=== PATIENT | female | born 1985 | race Caucasian/White ===

== ENCOUNTER 2024-09-03 03:09 | Outpatient (CLI) | payer OTHER, SELFPAY | END 2024-09-03 03:10 | disposition home or self-care (01) | LOC: AMB 09-04 15:02 | PROVIDERS: Visit Provider Family Medicine | DX: R56.9 Unspecified convulsions (principal) | CPT/HCPCS: A0998 ==

== ENCOUNTER 2024-09-03 04:28 | Inpatient (IN) | payer OTHER, SELFPAY ==
[2024-09-03] VITALS (29 sets, daily range): BP systolic 118–177; BP diastolic 78–128; PULSE 91–137; RESP 14–22; TEMP 35.8–36.4; O2SAT 94–99; BMI 34.2
--- NOTE | 2024-09-03 05:01 | CRLHL7_ITS ---
For Patients: As a result of the Century Cures Act, medical imaging exams and procedure reports are released immediately into your electronic medical record. You may view this report before your referring provider. If you have questions, please contact your health care provider. INDICATION: First seizure. COMPARISON: None. TECHNIQUE: CT of the brain / head without intravenous contrast. Multiplanar axial, coronal, and sagittal reformats were reconstructed. FINDINGS: No intracranial hemorrhage. Normal appearance of the white matter. No acute or subacute cortically based infarct. No mass or mass effect. Normal ventricles. No skull fractures. No worrisome focal bone lesion. IMPRESSION: Normal head CT. Please note that all CT scans at this facility use dose modulation, iterative reconstruction, and/or weight-based dosing when appropriate to reduce radiation dose to as low as reasonably achievable. Dictated by Farideh Becerra MD @ 09/03/2024 5:35:06 AM (Electronically Signed)
--- NOTE | 2024-09-03 05:03 | ED.GENADULT ---
HPI - General Adult General Chief complaint: Seizure Stated complaint: possible seizure Time Seen by Provider: 09/03/24 04:39 Source: patient and family Mode of arrival: ambulatory Limitations: no limitations History of Present Illness HPI narrative: 39-year-old female presents the emergency department for evaluation of seizure episode. This episode was witnessed by her . She states that she was watching TV with her spouse, she felt a little funny and then started staring at a candle and seeing funny lytes, this lasted for probably about 30 seconds and then reports that she started having a shaking episode with her head turned to the side that lasted probably about 3 minutes. She was not arousable. He is very familiar with what a seizure looks like, as his mother has a history of epilepsy. He called 911. She came out of the seizure within probably about 3 minutes. She was drowsy and a little out of it for probably about another 5 minutes and then by the time EMS arrived, she was fully alert and conversational. She does remember EMS coming. She does not believe that she has had similar episodes like this. Does not use any anticoagulants. No recent major head injury. She has bruises across her abdomen, hands she reports that she fell several days ago when she was celebrating her birthday. She admits to drinking more alcohol than usual on that day. On specific questioning, it is clear that she drinks alcohol most days. Reports both beer and a shot most days but is very vague on her quantification both to me and the nurse. No fever. She is not on any type of medications but does admit that she is working with a counselor who does suspect that she has some panic disorder. Denies allergies. No history of treatment for alcohol disorder, denies history of liver dysfunction. Patient has signed off on the ambulance after they medically cleared her but recommended evaluation in the ED. She presents about a 1/2 hour later by private car for evaluation. present, good historian. Does seem insightful to her alcohol usage as well. No similar prior ED visits. Past medical history notable for no chronic medical problems. No allergies, no long-term medicines. No recent surgeries. ROS is notable for the neurological changes and anxiety as stated above, otherwise denies times 12 systems. Related Data Home Medications ?Medication ?Instructions ?Recorded ?Confirmed No Known Home Medications 09/03/24 09/03/24 Allergies Allergy/AdvReac Type Severity Reaction Status Date / Time No Known Drug Allergies Allergy Verified 09/03/24 04:39 [facility] Social History Smoking Status: Never smoker Do you use any of these nicotine containing products: None Second hand tobacco smoke exposure: No How often do you have a drink containing alcohol: 4 or more times a week How many standard drinks containing alcohol do you have on a typical day: 1 or 2 How often do you have six or more drinks on one occasion: Less than monthly AUDIT-C Alcohol total score: 5 Non-prescribed substance use: marijuana (any form) Exam Const: Vital Signs, click to edit/add: Vital Signs - 24 hr 09/03/24 04:36 09/03/24 07:09 09/03/24 07:15 Temperature 97.6 F Pulse Rate 97 95 Pulse Rate [Pulse Oximeter] 137 H Respiratory Rate 20 17 15 Blood Pressure Blood Pressure [Ri ght Upper Arm] 170/128 H Pulse Oximetry 97 98 97 Oxygen Delivery Me thod Room Air 09/03/24 07:22 09/03/24 07:22 09/03/24 07:23 Temperature Pulse Rate 97 97 91 Pulse Rate [Pulse Oximeter] Respiratory Rate 14 14 Blood Pressure 130/81 130/81 Blood Pressure [Ri ght Upper Arm] Pulse Oximetry 99 99 96 Oxygen Delivery Me thod 09/03/24 07:30 09/03/24 07:42 09/03/24 07:45 Temperature Pulse Rate 109 H 98 119 H Pulse Rate [Pulse Oximeter] Respiratory Rate 17 21 21 Blood Pressure 140/85 H Blood Pressure [Ri ght Upper Arm] Pulse Oximetry 99 96 98 Oxygen Delivery Me thod 09/03/24 08:00 09/03/24 08:02 09/03/24 08:15 Temperature Pulse Rate 104 H 102 H 98 Pulse Rate [Pulse Oximeter] Respiratory Rate 21 22 18 Blood Pressure 143/98 H Blood Pressure [Ri ght Upper Arm] Pulse Oximetry 98 97 98 Oxygen Delivery Me thod Documenting provider has reviewed patient's vital signs: yes Common normals: no apparent distress Other: Calm, respectful and cooperative. She is not defensive about the drinking at all. Tremor present. Bruises on hands and abdomen. Icterus. Tachycardia noted. HENMT: Common normals: normocephalic Head and scalp: normal to inspection and normocephalic Face and sinus: normal facial exam Throat: posterior oropharynx normal Other: No large lacerations to tongue. Normal dentition. Eye: Common normals: PERRL Pupil: PERRL Other: Mild icterus. Neck & C-Spine: Common normals: full ROM and no lymphadenopathy General: normal visual inspection Resp: Common normals: normal respiratory effort, no use of accessory muscles and clear to auscultation bilaterally Effort & inspection: able to speak in complete sentences Auscultation: clear to auscultation bilaterally Cardio: Common normals: regular rate, regular rhythm, S1 normal heart sound, S2 normal heart sound and no murmurs Rate: regular rate Rhythm: regular rhythm Heart sounds: S1 normal and S2 normal GI: Common normals: Normal to inspection, nondistended, normoactive bowel sounds present Other: Bruises all in same stage of healing across abdomen. Liver is enlarged 2 cm below costal margin. No mass. Bowel sounds are normoactive. : Common normals: no CVA tenderness Bladder/kidney exam: no CVA tenderness Back & Pelvis: Common normals: no CVA tenderness Extremity: Common normals: normal to inspection and no joint enlargement Other: Bruising but no signs of joint swelling, effusions, deformity or redness. Neuro: Other: Resting tremor, no asterixis. Normal speech. Psych: Common normals: thought process normal, cooperative, affect normal and speech normal Speech: normal speech Thought process: normal thought process Insight: insight good Judgement: judgment good Skin: Narrative: Multiple bruises, no open lacerations. Course Course ED Course: 39-year-old female with tachycardia, tremor, icterus, hypertension and recent seizures suspicious for alcohol withdrawal seizure. Counseled patient that I am highly suspicious that this is alcohol withdrawal seizure and surprisingly, the conversation went pretty well. She nods and acceptance though does seem surprised. I have recommended a head CT since she does have all this bruising and does seem quite a bit vague on the circumstances. I will attempt to get her away from to investigate for any non accidental traumas. Lab work to look at liver function, alcohol level, lactate. I think a loading dose of phenobarbital is a good idea both for seizure prevention and because of the alcohol withdrawal. Consider some oral lorazepam after the head CT is reassuring. EKG and troponin to ensure that this was not a cardiac event. test as well. Await findings. Reevaluation(s) Reevaluation #1: Patient had good improvement in her tremors with the phenobarbital. No evidence of seizures while in the ED. Unfortunately, we had a couple of very critically ill patients come in the [facility] for quite some time. I eventually made a background patient and discussed findings. Her labs show signs of significant alcoholic liver disease including hyperbilirubinemia which does fit clinically with the icterus that we were noting. She also has severe thrombocytopenia which is likely related to the alcoholic liver disease also. Other metabolic derangements are also most likely consistent with acute alcoholic liver disease. I counseled patient on these findings. Stressed to her that if her drinking continues, her life expectancy is no more than just a few years. She is highly motivated to quit drinking. She is willing to treat her anxiety and continue working with a counselor. She is accepting of this diagnosis. Head CT was normal. We discussed coming into the hospital to stabilize her on seizure medications for 24 hours, we do typically treat for at least 30 days with an antiepileptic with this type of seizure. She verbalized understanding and agreement. She will need vitamin replacement, management of the other electrolyte abnormalities and conditions. She would benefit from an ultrasound of the liver to make sure that there is not an obstructive process. Hospitalist accepts patient for admission and will continue further workup as described above. Vital Signs Vital signs: Initial Vital Signs Temperature 97.6 F 09/03/24 04:36 Temperature Source Temporal Artery Scan 09/03/24 04:36 Pulse Rate 137 H 09/03/24 04:36 Pulse Rhythm Regular 09/03/24 04:36 Respiratory Rate 20 09/03/24 04:36 Blood Pressure 170/128 H 09/03/24 04:36 Blood Pressure Mean 142 H 09/03/24 04:36 Blood Pressure Position Sitting 09/03/24 04:36 Pulse Oximetry 97 09/03/24 04:36 Oxygen Delivery Method Room Air 09/03/24 04:36 Vital Signs Temperature 97.6 F 09/03/24 04:36 Pulse Rate 137 H 09/03/24 04:36 Respiratory Rate 20 09/03/24 04:36 Blood Pressure 170/128 H 09/03/24 04:36 Pulse Oximetry 97 09/03/24 04:36 Oxygen Delivery Method Room Air 09/03/24 04:36 Temperature 97.6 F 09/03/24 04:36 Pulse Rate 98 09/03/24 08:15 Respiratory Rate 18 09/03/24 08:15 Blood Pressure 143/98 H 09/03/24 08:02 Pulse Oximetry 98 09/03/24 08:15 Oxygen Delivery Method Room Air 09/03/24 04:36 Medications Administered Medications: Discontinued Medications Generic Name Dose Route Start Last Admin Trade Name Kelsey PRN Reason Stop Dose Admin Phenobarbital 260 mg/ Sodium 104 mls @ 208 mls/hr 09/03/24 05:03 09/03/24 07:22 Chloride IVPB 09/03/24 05:04 Infused ONCE ONE Infusion Medical Decision Making Lab Data Lab results reviewed: Yes I reviewed the patient's lab results Lab results narrative: Thrombocytopenia, likely secondary to alcoholic liver disease. Hyponatremia, hypokalemia, elevation of liver enzymes consistent with alcoholic liver disease but disproportionately elevated bilirubin. Alcohol and troponins negative, as expected. Labs: Lab Results 09/03/24 Range/Units 05:08 WBC 4.47 L (4.50-11.00) K/uL RBC 4.05 (4.00-5.20) m/uL Hgb 12.0 (12.0-16.0) gm/dL Hct 35.4 (33.0-51.0) % MCV 87 (80-100) fL MCH 30 (26-34) pg MCHC 34 (32-36) gm/dL RDW Coeff of Miley 15.7 H (11.5-15.5) % Plt Count 34 L* (140-440) K/uL Neut % (Auto) 83.6 H (42.0-72.0) % Lymph % (Auto) 8.9 L (20-44) % [place] % (Auto) 6.0 (0.0-11.0) % Eos % (Auto) 1.1 (0.0-7.0) % Baso % (Auto) 0.2 (0.0-3.0) % Neut # (Auto) 3.70 (1.7-7.0) K/uL Lymph # (Auto) 0.40 L (0.90-2.90) K/uL [place] # (Auto) 0.30 (0.00-0.90) K/UL Eos # (Auto) 0.00 (0.00-0.50) K/uL Baso # (Auto) 0.00 (0.00-0.30) K/uL Abs Immat Gran (auto) 0.00 (0.00-0.30) K/uL Imm/Tot Granulo (auto) 0.2 % Sodium 131 L (135-149) mmol/L Potassium 3.1 L (3.6-5.1) mmol/L Chloride 89 L (96-114) mmol/L Carbon Dioxide 24 (20-32) mmol/L Anion Gap 18 H (7-15) mEq/L BUN 21 (5-24) mg/dL Creatinine 0.8 (0.5-1.5) mg/dL Estimated Creat Clear 106.57 Estimated GFR 97 ml/min Glucose 158 H (60-115) mg/dL Lactate 2.9 H (0.5-1.9) mmol/L Calcium 9.6 (8.4-10.6) mg/dL Total Bilirubin 5.6 H (0.1-1.5) mg/dL AST 132 H (12-35) U/L ALT 62 H (4-35) U/L Alkaline Phosphatase 71 (40-150) U/L Total Protein 9.0 H (6.0-8.3) g/dL Albumin 5.0 (3.3-5.0) g/dL Ethyl Alcohol < 0.01 (0.01-0.03) % POC Troponin I 0.01 (0.01-0.04) ng/ml ECG Data Attestation: I personally reviewed and interpreted this ECG as follows: Prior ECG tracings: not available for review Interpretation: Sinus tachycardia rate of 130. Normal axis. No significant ST or T-wave abnormalities. Recall this and normal EKG with the exception of the tachycardia. Discharge Plan Discharge Clinical Impression: Alcohol withdrawal seizure, Thrombocytopenia, Hyperbilirubinemia, Acute alcoholic liver disease Patient Disposition: Admitted As Inpatient Condition: Guarded
[2024-09-03 05:23] LABS: Troponin, Point-of-Care* 0.01 ng/ml (0.01-0.04)
[2024-09-03 05:24] LABS: Lactate* 2.9 mmol/L (0.5-1.9)
[2024-09-03 05:29] LABS: Chloride* 89 mmol/L (96-114)
[2024-09-03 05:30] LABS: Potassium* 3.1 mmol/L (3.6-5.1); Sodium* 131 mmol/L (135-149)
[2024-09-03 05:32] LABS: Alanine Aminotransferase* 62 U/L (4-35); Anion Gap 18 mEq/L (7-15); Aspartate Amino Transferase* 132 U/L (12-35); Blood Urea Nitrogen* 21 mg/dL (5-24); Carbon Dioxide* 24 mmol/L (20-32); Creatinine* 0.8 mg/dL (0.5-1.5); Est. Creatinine Clearance* 106.57; Estimated Glomerular Filt Rate 97 ml/min
--- OUTSIDE RECORDS SUMMARY | 2024-09-03 05:32 | XMS_ITS | Clinical Summary ---
Author Organization [facility] Address [address] [place] [address] Care Team Providers Care Medical Records Secretary Name Role Phone Found, No Pcp MD Primary Care Provider Unavailab le Source Comments You are receiving this document as you are listed as the primary care provider,follow-up provider, or the patient has been referred to you for consultation.This is in compliance with the Medicare andFire[facility] Regional Medical Centercaid EHR Incentive Program,which states Providers who transition their patient to another setting of careor provider of care or refers their patient to another provider of care shouldprovide summary care record for each transition of care or referral. [employer] Allergies No known active allergies Medications unknown medication Indications : PN: 12/02/2008 Active unknown medication Indications : PN: 12/21/2008 Active escitalopram (LEXAPRO) 10 MG tabletIndication s:Shaking,Light headed,Anxiety (HRC) Take 1 Tablet (10 mg) by mouth daily. 30 Tablet 04/01/2023 Active Active Problems Problem Noted Date Diagnosed Date Hypomenorrhea 09/15/2011 Resolved Problems Problem Noted Date Diagnosed Date Resolved Date Major depressive disorder, single episode 01/15/2008 09/15/2011 Overview (01/13/2017): Depression Major NOS Varicella 04/17/2005 06/17/2005 Overview (01/13/2017): LW Onset: [id number] ; Varicella Zoster Immunizations Immunization Administration Dates Next Due DTP 11/22/1991 Flu Vac Preserv Free (3+yrs) 04/17/2005 HepB Adult (Engerix-B, 20+ y rs, 3 dose series) 10/13/1995,07/16/1995,06/16/1995 Influenza, Unspecified Formulation 03/07/1998 MCV4 (Menactra) 01/05/2005 MMR 05/08/1998 OPV, Trivalent (Orimune or tOPV) 11/22/1991 TDAP (ADACEL) 01/12/2008 Td 05/08/1998 Family History Medical History Relation Name Comments Diabetes, Type II Father Cancer, Lung Paternal Grandfather Diabetes, Type II Paternal Grandfather Relation Name Status Comments Father Paternal Grandfather Social History Tobacco Use Types Packs/Day Years Used Date Smoking Tobacco: Never Comments No Sex and Gender Information Value Date Recorded Sex Assigned at Not on file Legal Sex Female 3:28 AM CDT Gender Identity Not on file Sexual Orientation Not on file Last Filed Vital Signs Vital Sign Reading Time Taken Comments Blood Pressure 180/99 04/01/2023 11:25 AM BUCKET OPERATOR Pulse 100 04/01/2023 11:24 AM BUCKET OPERATOR Temperature 36.8 C (98.2 F) 04/01/2023 11:24 AM BUCKET OPERATOR Respiratory Rate 20 04/01/2023 11:24 AM BUCKET OPERATOR Oxygen Saturation 100% 04/01/2023 11:24 AM BUCKET OPERATOR Inhaled Oxygen Concentration - - Weight 135.2 kg (298 lb) 09/15/2011 1:19 PM CDT Height 179.1 cm (5' 10.5) 01/12/2008 3:24 PM CD T C: 179.1cm Body Mass Index 42.15 01/12/2008 3:24 PM CDT Plan of Treatment Health Maintenance Due Date Last Done Comments Hep C Screening (Preventive Services) 1986 HIV Screening (Preventive Services) 2002 Adult Preventive Visit 2004 Cervical Cancer Screening Due 09/16/2011 09/15/2011, 01/12/2008, 11/16/2002 DTaP/Tdap/Td (7 - Tdap) 01/11/2018 01/12/20 08, 05/08/1998, 11/22/1991, Additional history exists COVID-19 Vaccine ( season) 2024 02/16/2023, 02/18/2022, 10/05/2020, Additional history exists Influenza (#1) 2024 02/16/2023, 02/21, 04/10/2021, Additional history exists Zoster/Shingles (1 of 2) 2036 IPV (Polio) Completed 11/22/1991, 02/22, 01/03/1987, Additional history exists HepB Completed 10/13/1995, 06/25, 06/16/1995 MCV4 Completed 01/05/2005 HPV Vaccine Aged Out No longer eligi ble based on patient's age to complete this topic HepA Aged Out No longer eligi ble based on patient's age to complete this topic Hib Aged Out No longer eligi ble based on patient's age to complete this topic Meningococcal B Aged Out No longer el igible based on patient's age to complete this topic Pneumococcal Aged Out No longer eligi ble based on patient's age to complete this topic Procedures Procedure Name Priority Date/Time Associated Diagnosis Comments ANATOMICAL PATH LIQUID BASED Routine 09/15/2011 1:42 PM CDT from Last 3 Months or Most Recently Relevant to Health Maintenance Results * Pap Smear (09/15/2011 1:42 PM CDT) 09/15/2011 1:42 PM CDT Narrative HP CONVERSION - 09/19/2011 1:44 PM CDT Final GYNECOLOGICAL CYTOLOGY REPORT Pathology #: [id number] Date Obtained: 09/15/2011 Date Received: 09/16/2011 INTERPRETATION/RESULTS: Negative for Intraepithelial Lesion or Malignancy SPECIMEN ADEQUACY: Satisfactory for Evaluation. Endocervical cells/transformation zone component present. Verified on 09/19/2011 by MINIE BACCAM, CT(ASCP) (electronic signature) CLINICAL NOTES: LMP: 08/26/11, Previous normal: 2007. LIQUID BASED PAP SMEAR SPECIMEN TYPE: CERVICAL WITH REFLEX TO HPV IF ASCUS PLEASE NOTE: The pap smear is a screening test designed to aid in the detection of cervical cancer and its precursor lesions. It is not a diagnostic procedure and should not be used as the sole means of detecting cervical cancer. Both false-positive and false-negative reports may occur. End of Report us Luz Foley [employer]IE [employer], LICENSED AND CERTIFIED [facility] Final R esult HP CONVERSION from Last 3 Months or Most Recently Relevant to Health Maintenance Care Teams Medical Records Secretary Relationship Specialty Start Date End Date Found, No Pcp, [address] [place] [address] PCP - General 11/18/18
[2024-09-03 05:33] LABS: Alkaline Phosphatase* 71 U/L (40-150); Bilirubin Total* 5.6 mg/dL (0.1-1.5); Calcium* 9.6 mg/dL (8.4-10.6); Glucose* 158 mg/dL (60-115)
[2024-09-03 05:34] LABS: Basophils Percent Auto 0.2 % (0.0-3.0); Eosinophils Percent Auto 1.1 % (0.0-7.0); Ethanol* < 0.01 % (0.01-0.03); Hematocrit 35.4 % (33.0-51.0); Immature Granulocytes Pct Auto 0.2 %; Lymphocytes Percent Auto 8.9 % (20-44); Mean Corpuscular HGB Conc 34 gm/dL (32-36); Mean Corpuscular Hemoglobin 30 pg (26-34); Mean Corpuscular Volume 87 fL (80-100); Neutrophils Percent Auto 83.6 % (42.0-72.0); RDW Coefficient of Variation % 15.7 % (11.5-15.5); Red Blood Count 4.05 m/uL (4.00-5.20); White Blood Count* 4.47 K/uL (4.50-11.00)
[2024-09-03 05:40] LABS: Platelet Count* 34 K/uL (140-440)
[2024-09-03] MEDS: PHENobarbitaL 260 MG in 0.9 % SODIUM CHLORIDE 100 ml 100 ML 208 MG IVPB ×4 (05:40→20:51)
[2024-09-03 06:22] LABS: Slide Review Reflex No
--- NOTE | 2024-09-03 08:46 | P.IMHP_ITS ---
Assessment and Plan Assessment and plan (1) Seizure: Problem comment: - presumably 2/2 ETOH withdrawal (last drink 410pm), no high risk medications, no history of previous seizure - treat ETOH withdrawal aggressively, reviewed with Dr. Root of Neurology by phone (no further inpatient workup or medication, outpatient Neuro f/u) Status: Acute (2) Liver disease: Problem comment: - findings of by hyperbilirubinemia, elevated AST/ALT, hyponatremia, thrombocytopenia - chronicity unknown, presumably 2/2 ETOH use - will obtain imaging to evaluate for cirrhosis Status: Acute (3) Alcohol use disorder: Problem comment: - last drink in the evening 08/31, typically drinks 5-6 days/week - seizure around 0200 09/03, witnessed by Status: Acute (4) Fall: Problem comment: - fall while intoxicated around 08/31/24, down 13 stairs, no LOC - multiple bruises over chest, back, abdomen, extremities - negative head CT, reassuring A/P CT on 09/03 Status: Acute (5) Hyperbilirubinemia: Problem comment: - likely secondary to alcohol use disorder, imaging ordered Status: Acute (6) Thrombocytopenia: Problem comment: - imaging to evaluate liver and spleen, follow - unknown baseline/chronicity - multiple bruises, but no acute bleeding noted Status: Acute (7) Anxiety: Problem comment: - long history of this, per patient - had been given Rx for Lexapro in the past from , had never started this - amenable to starting 09/03 Status: Acute Plan - per above - requires inpatient status given high risk alcohol withdrawal patient presenting with seizure, multiple vital sign abnormalities, severe metabolic derangement secondary to liver disease and alcohol use disorder Hospitalist- H&P: HPI History of Present Illness Date Seen: 09/03/24 Chief complaint: possible seizure Narrative: Radha Valadez is a 39 year old female who presented to the ER early this morning after having a seizure at home. She was sitting on the couch watching TV with her around 3am, when he noted her having a shaking episode with her head turned to the side; he believes this lasted about 3 minutes. Patient does not remember the episode; she notes having some vision changes just prior to the seizure. Called 911 after this seizure, seen by EMS but elected to have her drive her to the emergency room. ER Course and Findings: - no further seizures - given Phenobarbital 260mg IV x1 - Elevated AST, ALT, bilirubin - normal WBC, Hgb 12, platelets 34 Unknown lab baseline. No known medical history, G0, hasn't seen a PCP in years. Review of Systems Narrative: - no CP, no dyspnea - no nausea/vomiting, no abdominal pain - multiple bruises over body from fall last week (was drinking on her birthday and fell down 13 stairs, no LOC) - no previous seizures PFSH [facility] Medical History (Updated 09/03/24 @ 13:48 by Marium Werner MD) Anxiety ?F41.9 - Anxiety disorder, unspecified (ICD-10) Surgical History (Updated 09/03/24 @ 10:40 by Marium Werner MD) [place] teeth removed ?K08.409 - Partial loss of teeth, unspecified cause, unspecified class (ICD- 10) Social History (Updated 09/03/24 @ 13:41 by Marium Werner MD) Narrative: Lives with Venu Nam in [place], he would be medical decision maker if needed. History of alcohol use disorder, nonsmoker. Has previously worked in [employer]. Requests full code status. What is your current living situation?: I presently have a place to live Problems where you live: no known problems Problems where you live details: NA In the past 12 months, utilities in danger of being shut off: no In past 12 months, lack of transportation kept you from medical appts, meetings, work, or getting things needed for daily living: no In the past 12 mos, have been you worried that your food would run out before you had money to buy more?: never true In the past 12 mos, the food you bought just didn't last and you didn't have money to buy more?: never true Smoking Status: Never smoker Do you use any of these nicotine containing products: None Second hand tobacco smoke exposure: No How often do you have a drink containing alcohol: 2-3 times a week Alcohol type: beer and hard liquor Alcohol type details: beer, shots of dalia james How many standard drinks containing alcohol do you have on a typical day: 3 or 4 How often do you have six or more drinks on one occasion: Monthly AUDIT-C Alcohol total score: 6 Non-prescribed substance use: marijuana (any form) and other Non-prescribed substance use details: THC drinks Caffeine: Yes (diet coke) How often does anyone, including family, friends and others, physically hurt you : never How often does anyone, including family, friends and others, insult or talk down to you: never How often does anyone, including family, friends and others, threaten you with harm: never How often does anyone, including family, friends and others, scream or curse at you: never Meds Home Medications and Allergies Home Medications ?Medication ?Instructions ?Recorded ?Confirmed ?Type No Known Home Medications 09/03/24 09/03/24 History Home Medication Comments: Occasionally takes Melatonin at night to sleep Was given an Rx from years ago for Lexapro given h/o anxiety/panic disorder, never started Allergies Allergy/AdvReac Type Severity Reaction Status Date / Time No Known Drug Allergies Allergy Verified 09/03/24 04:39 Exam Narrative: Exam Narrative: GEN: Alert and answering questions appropriately, does endorse hallucinations HEENT: Normal external ears, EOMIs bilaterally, no scleral icterus CV: Heart rate 100s during exam, no concerning murmurs R: LCTA bilaterally without concerning wheezing, air movement adequate Ab: Protuberant without obvious hepatosplenomegaly, tolerates palpation Ext: wwp, no concerning edema Skin: Scattered bruising over chest, abdomen, extremities, back Neuro: Fine tremor of bilateral upper extremities noted, gait is cautious Psych: No agitation, mild anxiety surrounding hallucinations Const: Vital Signs, click to edit/add: Vital Signs - 24 hr 09/03/24 04:36 09/03/24 07:09 09/03/24 07:15 Temperature 97.6 F Pulse Rate 97 95 Pulse Rate [Pulse Oximeter] 137 H Respiratory Rate 20 17 15 Blood Pressure Blood Pressure [Ri ght Upper Arm] 170/128 H Pulse Oximetry 97 98 97 Oxygen Delivery Me thod Room Air 09/03/24 07:22 09/03/24 07:22 09/03/24 07:23 Temperature Pulse Rate 97 97 91 Pulse Rate [Pulse Oximeter] Respiratory Rate 14 14 Blood Pressure 130/81 130/81 Blood Pressure [Ri ght Upper Arm] Pulse Oximetry 99 99 96 Oxygen Delivery Me thod 09/03/24 07:30 09/03/24 07:42 09/03/24 07:45 Temperature Pulse Rate 109 H 98 119 H Pulse Rate [Pulse Oximeter] Respiratory Rate 17 21 21 Blood Pressure 140/85 H Blood Pressure [Ri ght Upper Arm] Pulse Oximetry 99 96 98 Oxygen Delivery [facility] 09/03/24 08:00 09/03/24 08:02 09/03/24 08:15 Temperature Pulse Rate 104 H 102 H 98 Pulse Rate [Pulse Oximeter] Respiratory Rate 21 22 18 Blood Pressure 143/98 H Blood Pressure [Ri ght Upper Arm] Pulse Oximetry 98 97 98 Oxygen Delivery [facility] Hospitalist - H&P: Result Labs Labs: Short CBC 09/03/24 Range/Units 05:08 WBC 4.47 L (4.50-11.00) K/uL Hgb 12.0 (12.0-16.0) gm/dL Hct 35.4 (33.0-51.0) % Plt Count 34 L* (140-440) K/uL BMP 09/03/24 05:08 Sodium 131 L Potassium 3.1 L Chloride 89 L Carbon Dioxide 24 BUN 21 Creatinine 0.8 Glucose 158 H Calcium 9.6 Liver Function 09/03/24 Range/Units 05:08 Total Bilirubin 5.6 H (0.1-1.5) mg/dL AST 132 H (12-35) U/L ALT 62 H (4-35) U/L Alkaline Phosphatase 71 (40-150) U/L Albumin 5.0 (3.3-5.0) g/dL
[2024-09-03 09:42] LABS: HCO3 VBG 30 mmol/L (21-28); Lactate* 1.5 mmol/L (0.5-1.9); PCO2 VBG 37 mmHG (40-50); PO2 VBG 32.5 mmHG (25-47); pH VBG 7.511 (7.32-7.43)
[2024-09-03] MEDS: LORazepam 1 MG TABLET PO ×2 (09:55→11:08)
[2024-09-03 10:11] LABS: Chloride* 88 mmol/L (96-114); Potassium* 3.3 mmol/L (3.6-5.1); Sodium* 131 mmol/L (135-149)
[2024-09-03 10:14] LABS: Blood Urea Nitrogen* 22 mg/dL (5-24); Creatinine* 0.8 mg/dL (0.5-1.5); Est. Creatinine Clearance* 106.57; Estimated Glomerular Filt Rate 97 ml/min
[2024-09-03 10:15] LABS: Anion Gap 15 mEq/L (7-15); Calcium* 9.7 mg/dL (8.4-10.6); Carbon Dioxide* 28 mmol/L (20-32); Glucose* 135 mg/dL (60-115)
[2024-09-03 10:16] LABS: Magnesium* 1.5 mg/dL (1.5-2.6)
--- NOTE | 2024-09-03 10:28 | CRLHL7_ITS ---
For Patients: As a result of the Century Cures Act, medical imaging exams and procedure reports are released immediately into your electronic medical record. You may view this report before your referring provider. If you have questions, please contact your health care provider. INDICATION: Evaluate for splenomegaly TECHNIQUE: CT abdomen and pelvis acquired with 98 mL Isovue 370 IV contrast. COMPARISON: None. Baseline. FINDINGS: The visualized portions of the lung bases are clear. The liver demonstrates diffuse decreased attenuation, suggestive of hepatic steatosis. The liver capsule appears smooth. No intrahepatic biliary dilatation. No focal mass is visualized. The spleen is mildly enlarged measuring up to 16 cm. The pancreas and adrenal glands are unremarkable. The kidneys enhance symmetrically without hydronephrosis. The bladder is partially distended and unremarkable. There are no dilated loops of small bowel to suggest obstruction. The appendix is normal. There is no intraperitoneal free air or fluid. The visualized osseous structures are unremarkable. IMPRESSION: 1. Hepatic steatosis. 2. Mild splenomegaly. Dictated by Alberta Buckley MD @ 09/03/2024 11:35:47 AM Please note that all CT scans at this facility use dose modulation, iterative reconstruction, and/or weight-based dosing when appropriate to reduce radiation dose to as low as reasonably achievable. Dictated by: Alberta Buckley MD @ 09/03/2024 11:36:13 (Electronically Signed)
[2024-09-03 10:32] LABS: Basophils Absolute Auto 0.01 K/uL (0.00-0.30); Basophils Percent Auto 0.2 % (0.0-3.0); Eosinophils Absolute Auto 0.04 K/uL (0.00-0.50); Eosinophils Percent Auto 0.8 % (0.0-7.0); Hematocrit 33.6 % (33.0-51.0); Hemoglobin* 11.5 gm/dL (12.0-16.0); Immature Granulocytes Abs Auto 0.02 K/uL (0.00-0.30); Immature Granulocytes Pct Auto 0.4 %; Lymphocytes Percent Auto 10.9 % (20-44); Mean Corpuscular HGB Conc 34 gm/dL (32-36); Mean Corpuscular Hemoglobin 31 pg (26-34); Mean Corpuscular Volume 89 fL (80-100); Monocytes Percent Auto 6.9 % (0.0-11.0); Neutrophils Percent Auto 80.8 % (42.0-72.0); RDW Coefficient of Variation % 15.7 % (11.5-15.5); Red Blood Count 3.77 m/uL (4.00-5.20); White Blood Count* 5.22 K/uL (4.50-11.00)
[2024-09-03 10:53] LABS: Platelet Count* 45 K/uL (140-440)
[2024-09-03 10:54] LABS: Slide Review Reflex Yes
[2024-09-03] MEDS: POTASSIUM BICARB 25 MEQ EFFERVESCENT TAB PO (11:08)
[2024-09-03] MEDS: SODIUM CHLORIDE 0.9 % (FLUSH) 10 ML SYRINGE 5 ML IVF ×2 (11:09→17:26)
[2024-09-03 11:12] LABS: INR 0.98 (0.91-1.10); Prothrombin Time 13.8 Seconds
[2024-09-03] MEDS: 0.9 % SODIUM CHLORIDE 250 ml IV (11:12)
[2024-09-03] MEDS: LORazepam 2 MG/ML inj IVP ×5 (12:48→19:59)
[2024-09-03 13:35] LABS: Ur HCG Qualitative* Negative (Negative)
[2024-09-03 13:41] LABS: Slide Review Acceptable Review (Acceptable)
[2024-09-03 14:06] LABS: Amphetamine Screen Urine Negative (Negative); Barbiturate Screen Urine POSITIVE (Negative); Benzodiazepines Screen Urine Negative (Negative); Cannabinoid Screen Urine POSITIVE (Negative); Cocaine Screen Urine Negative (Negative); Methadone Screen Urine Negative (Negative); Methamphetamines Screen Urine Negative (Negative); Opiate Screen Urine Negative (Negative); Oxycodone Screen Urine Negative (Negative); Phencyclidine Screen Urine Negative (Negative); Tricyclic Antidepressant Urine Negative (Negative)
[2024-09-03] MEDS: THIAMINE 250 MG in 0.9 % SODIUM CHLORIDE 100 ml 100 ML 102.5 MG IVPB ×2 (14:38→22:13)
--- NOTE | 2024-09-03 18:35 | PC.NURSE ---
End of shift-- Pt admitted to CCU this afternoon. Tachycardic with HR from 100-120 and hypertensive at times, but VSS. Primarily alert and oriented, but drowsy and speech at times doesn't make sense. Occasionally restless. Pt has c/o hallucinations and has been speaking to people in her room while she is alone. CIWA from 1-14 this afternoon and pt was given Ativan per protocol. See EMR for details. She denied any pain. Telemetry shows sinus tachycardia. LS CTA. She denied nausea. Sclera of eyes is yellow. Pt has bruises on all extremities and in multiple places on her trunk in various stages of healing. Pt voided approximately 800ml of orange urine this shift. She was up to the BR with SBA and tolerated it fair. Pt is very unsteady on her feet. was at bedside this evening and appears loving and supportive.
--- NOTE | 2024-09-03 20:02 | P.CCN_ITS ---
Subjective Subjective Time Seen by Provider: 19:45 Date Seen: 09/03/24 Principal diagnosis: Alcohol withdrawal, thrombocytopenia Interval history: Nurse informed me that Radha is having visual hallucinations: seeing her parents in the hallway even though there was no one there. I went to see Radha. She was sitting up unsteadily in the bed with her purse in her lap. She told me she was cleaning out her purse. She bent over trying to grab something off the floor, but there was nothing there. She said she was trying to product picker her shoes. The nurse informed her that her shoes were not there; that her had taken them home. I asked Radha if she is seeing or hearing things that are not there. She rambled with a wandering story that went nowhere and then trailed off without answering the question. Objective Objective Data Details: Temperature 97.2?F, blood pressure 156/113, pulse 122, respirations 20, O2 sats 90% on room air. General: As above. No acute distress. Awake, sleepy, sitting up in the bed, oriented to self and place. Speech is slurred. Multiple bruises all over her body. No pallor. No jaundice. Tremor of both hands noted. Oropharynx: Clear. Mucous membranes moist. Cardiovascular: Regular rate and rhythm. No murmurs, gallops, or rubs. Respiratory: Clear to auscultation bilaterally. No wheezes or crackles. Assessment and Plan Assessment and plan (1) Alcohol withdrawal hallucinosis: Problem comment: - May be heading into DT: Elevated BP, HR, now with hallucinations. I spoke with nurse about CIWA protocol, continue using IV ativan as per protocol, may need extra doses up front. She has gotten 3 doses of phenobarbital 260mg, last one given at 1:30pm; max dose for 24 hours based on her bodyweight is 1620mg (about 6 doses at 260mg each). Will give 4th dose of phenobarbital 260mg now. Add 1:1 sitter. - Recheck labs: VBG, BMP, Mg, and CK. If persistent acid/base abnormalities, elevated CK, or significant electrolyte abnormalities, may need to transfer to an ICU, which we do not have available here. - I have reviewed her medications. She has been given IV thiamine. Due to agitation/confusion, she has been pulling out IVs, so I will order a bolus of IVF to be given with next thiamine, rather than ordering maintenance IVF. Status: Acute (2) Seizure: Problem comment: - presumably 2/2 ETOH withdrawal (last drink 4/10pm), no high risk medications, no history of previous seizure - treat ETOH withdrawal aggressively, reviewed with Dr. Root of Neurology by phone (no further inpatient workup or medication, outpatient Neuro f/u) Status: Acute (3) Thrombocytopenia: Problem comment: - imaging to evaluate liver and spleen, follow - unknown baseline/chronicity - multiple bruises, but no acute bleeding noted Status: Acute Plan - per above - requires inpatient status given high risk alcohol withdrawal patient presenting with seizure, multiple vital sign abnormalities, severe metabolic derangement secondary to liver disease and alcohol use disorder Total Time Spent Total Time Spent: CCU care time: 25 minutes to see patient, review Expanse notes/diagnostics/labs, talk with patient's nurse, review medications, recommendations from neurology, order labs.
[2024-09-03 20:19] LABS: HCO3 VBG 30 mmol/L (21-28); PCO2 VBG 38 mmHG (40-50); PO2 VBG 70.6 mmHG (25-47)
[2024-09-03] MEDS: 0.9 % SODIUM CHLORIDE 500 ML 500 ML IV (20:52)
[2024-09-03 20:58] LABS: Chloride* 90 mmol/L (96-114); Sodium* 131 mmol/L (135-149)
[2024-09-03 21:00] LABS: Blood Urea Nitrogen* 18 mg/dL (5-24); Creatinine* 0.8 mg/dL (0.5-1.5); Est. Creatinine Clearance* 106.57; Estimated Glomerular Filt Rate 97 ml/min
[2024-09-03 21:01] LABS: Anion Gap 12 mEq/L (7-15); Calcium* 9.1 mg/dL (8.4-10.6); Carbon Dioxide* 29 mmol/L (20-32); Creatine Kinase* 356 U/L (41-117); Glucose* 125 mg/dL (60-115); Magnesium* 1.8 mg/dL (1.5-2.6)
[2024-09-03 21:14] LABS: Potassium* 2.7 mmol/L (3.6-5.1)
[2024-09-03] MEDS: 5 % DEX/0.9 SOD CHL+KCL 20 mEq 1,000 ML 125 ML IV (22:43)
[2024-09-03] MEDS: POTASSIUM CHLORIDE 10 MEQ/100 ML PIGGYBACK 100 MEQ IVPB (23:30)
[2024-09-04] VITALS (15 sets, daily range): BP systolic 112–146; BP diastolic 71–92; PULSE 90–103; RESP 18–22; TEMP 35.8–36.9; O2SAT 93–100
[2024-09-04] MEDS: POTASSIUM CHLORIDE 10 MEQ/100 ML PIGGYBACK 100 MEQ IVPB ×2 (00:44→01:56)
[2024-09-04] MEDS: LORazepam 2 MG/ML inj IVP ×2 (01:24→06:21)
[2024-09-04] MEDS: 5 % DEX/0.9 SOD CHL+KCL 20 mEq 1,000 ML 125 ML IV ×3 (06:23→23:59)
[2024-09-04 06:33] LABS: HCO3 VBG 30 mmol/L (21-28); Lactate* 0.9 mmol/L (0.5-1.9); PCO2 VBG 43 mmHG (40-50); PO2 VBG < 30.1 mmHG (25-47); pH VBG 7.458 (7.32-7.43)
[2024-09-04 06:40] LABS: Basophils Percent Auto 0.3 % (0.0-3.0); Eosinophils Percent Auto 5.3 % (0.0-7.0); Hematocrit 29.5 % (33.0-51.0); Hemoglobin* 9.8 gm/dL (12.0-16.0); Immature Granulocytes Pct Auto 0.3 %; Lymphocytes Percent Auto 17.3 % (20-44); Mean Corpuscular HGB Conc 33 gm/dL (32-36); Mean Corpuscular Hemoglobin 30 pg (26-34); Mean Corpuscular Volume 91 fL (80-100); Monocytes Percent Auto 5.3 % (0.0-11.0); Neutrophils Percent Auto 71.5 % (42.0-72.0); RDW Coefficient of Variation % 16.2 % (11.5-15.5); Red Blood Count 3.23 m/uL (4.00-5.20)
[2024-09-04 06:42] LABS: Platelet Count* 41 K/uL (140-440); Slide Review Reflex No
--- NOTE | 2024-09-04 06:44 | PC.NURSE ---
End of shift report [id number]: ?Cooperative with cares. ?Patient having auditory and visual hallucinations. ?Patient attempting to get out of bed independently and bed alarm sounded, upon entering room patient was sitting on the bed side talking facing the door and looking past commercial loan underwriter. ?Life Consultant asked patient what assistance could be provided and patient became teary eyed and stated she was trying to get to her family and believed they were in the hallway. ?Patient stated ?I need to tell my mom and dad some bad news.? ?Patient speech slurred and as conversation progressed patient?s words became word salad. Patient picking at hands and arms and scratching at her abdomen. CIWA completed at that time and was 10, 2mg lorazepam administered per protocol. ?Assisted patient back into bed. ?15 minutes post lorazepam administration patient became restless and anxious, patient attempting to leave hospital stating she needed to go to a park right down the road. ?Patient became teary eyed again and asking where her was, commercial loan underwriter updated patient that her spouse went home earlier while she was resting but that commercial loan underwriter would call spouse if patient would like staff assistance. ?Patient declined. ?While assisting patient she began mumbling, she then stated ?I?m just watching that commercial and Gabriele Irizarry was killed unintentionally.? ?Patient?s TV was not on at that time.?Dr. Santos updated with patient?s hallucinations increasing and becoming bothersome, repeat CIWA done and 12, repeated dose of 2mg lorazepam. MD also updated with patient having prolonged QT, EKG obtained and MD given print out, no new orders at this time. ?Dr Santos assessed patient and new order for 260mg phenobarbital IVPB and labs ordered. ?Patient was able to rest comfortable, no further restlessness or hallucinations noted after administration of lorazepam at 1999 until 139, CIWA 9 at that time and prn lorazepam administered. ?Patients breathing even and unlabored throughout the night, periods of sleep apnea, patient denies any sleep study or formal OWEN diagnosis. ?Min assist x 1 with transfers and ambulation, patient denies any lightheadedness or dizziness with ambulation but gait unsteady. Requires assistance with IV pole. ?IV to left hand patent, covered with coban and tubigrip to prevent traumatic removal from patient.?Patient noted to have increased restlessness and reporting mild headache at 139, CIWA 9, prn lorazepam 2mg administered and effective for patient symptoms. Edema to BUE , BLE and facial edema, non pitting.
[2024-09-04 07:00] LABS: Chloride* 95 mmol/L (96-114); Sodium* 133 mmol/L (135-149)
[2024-09-04 07:01] LABS: Potassium* 3.2 mmol/L (3.6-5.1)
[2024-09-04 07:02] LABS: Blood Urea Nitrogen* 17 mg/dL (5-24); Creatinine* 0.7 mg/dL (0.5-1.5); Est. Creatinine Clearance* 121.79; Estimated Glomerular Filt Rate 113 ml/min
[2024-09-04 07:03] LABS: Alanine Aminotransferase* 83 U/L (4-35); Alkaline Phosphatase* 55 U/L (40-150); Anion Gap 8 mEq/L (7-15); Aspartate Amino Transferase* 215 U/L (12-35); Bilirubin Total* 2.9 mg/dL (0.1-1.5); Calcium* 8.1 mg/dL (8.4-10.6); Carbon Dioxide* 30 mmol/L (20-32); Creatine Kinase* 223 U/L (41-117); Gamma Glutamyl Transpeptidase* 250 U/L (8-55); Glucose* 114 mg/dL (60-115); Magnesium* 1.8 mg/dL (1.5-2.6); Total Protein* 7.2 g/dL (6.0-8.3)
[2024-09-04 07:06] LABS: INR 1.04 (0.91-1.10); Prothrombin Time 14.4 Seconds
[2024-09-04 07:24] LABS: Albumin* 3.9 g/dL (3.3-5.0)
[2024-09-04] MEDS: THIAMINE 250 MG in 0.9 % SODIUM CHLORIDE 100 ml 100 ML 102.5 MG IVPB (08:49)
[2024-09-04] MEDS: THIAMINE 100 MG TABLET 250 MG PO ×2 (08:50→20:31)
[2024-09-04] MEDS: FOLIC ACID 1 MG TABLET PO (08:51)
[2024-09-04] MEDS: SODIUM CHLORIDE 0.9 % (FLUSH) 10 ML SYRINGE 5 ML IVF (08:51)
[2024-09-04] MEDS: OMEPRAZOLE 20 MG CAPSULE DR PO ×2 (08:51→20:31)
--- NOTE | 2024-09-04 11:17 | PC.SOCIAL ---
Social Service Consult: LORETTA met with patient to provide resources for substance use treatment. Patient states she is unsure if she is ready for treatment. Patient reports that she has a therapist that she sees weekly for mental health through [facility]. Patient explains she has a good relationship with them, but won't see them until September due to a schedule change. Patient mentions that she has been looking a little bit into substance use on her own. SW provided patient with a list of treatment options local and in the [facility]. LORETTA also provided information for the [facility]. Patient's parents were due to arrive and she could hear them in the acosta and was wondering why the RN wasn't letting them in. SW explained that it's likely due to the RN unsure if patient is comfortable having her parents hear the current conversation. Patient states she is very comfortable with this and would like them to come in. LORETTA updated provider. LORETTA to assist if further needs arise.
[2024-09-04] MEDS: LORazepam 1 MG TABLET PO (14:44)
--- NOTE | 2024-09-04 15:30 | P.IMPN_ITS ---
Assessment and Plan Assessment and plan (1) Alcohol withdrawal hallucinosis: Problem comment: -can come out of ICU status -much improved in the last 12-18 hours -continue CIWA -prn ativan Status: Acute (2) Seizure: Problem comment: - presumably 2/2 ETOH withdrawal (last drink /10 pm), no high risk medications, no history of previous seizure - treat ETOH withdrawal aggressively, reviewed with Dr. Root of Neurology by phone (no further inpatient workup or medication, outpatient Neuro f/u) Status: Acute (3) Thrombocytopenia: Problem comment: - imaging to evaluate liver and spleen, follow. CT reviewed. - unknown baseline/chronicity - multiple bruises, but no acute bleeding noted Status: Acute (4) Alcohol use disorder: Problem comment: - last drink in the evening 08/31, typically drinks 5-6 days/week (Whisky shots and beer) - seizure around 0200 09/02, witnessed by . pt declined EMS but came by POV within an hour. Status: Acute (5) Liver disease: Problem comment: - findings of by hyperbilirubinemia, elevated AST/ALT, hyponatremia, thrombocytopenia - chronicity unknown, presumably 2/2 ETOH use - CT c/w with fatty disease. MELD 19 on admission. Status: Acute (6) Anxiety: Problem comment: - long history of this, per patient - had been given Rx for Lexapro in the past from , had never started this. - amenable to starting 09/04 Status: Acute (7) Fall: Problem comment: - fall while intoxicated around 08/31/24, down 13 stairs, no LOC - multiple bruises over chest, back, abdomen, extremities - negative head CT, reassuring A/P CT on 09/03 Status: Acute (8) Hyperbilirubinemia: Problem comment: - likely secondary to alcohol use disorder, imaging ordered Status: Acute Subjective Date Seen: 09/04/24 Interval history: Daily Progress Note - Hospital Medicine #: 3 CC: Acute Alcoholic withdrawal. Liver disease MELD 19. 24 HOUR UPDATE: rec'd 4 doses of phenobarbital in the first 32 hours + ativan. this morning she feels groggy but is eating; improved. Notable Labs, Micro, Rads, Interventions: Her vital signs are reviewed. She is afebrile. She is remained high normal tachycardic, high normal blood pressure nothing is worse than yesterday. She is satting 100% on room air and respirations are unlabored. CBC notes that her hemoglobin is down to 9.8, her platelet count is down to 41. Total white count 3.0 INR 1.04 Blood gas 7.458 Her sodium and potassium have improved. Her renal function is normal. Her bicarb is normal. There is no anion gap. Her glucose is normal. Magnesium is normal. Her bilirubin has down trended nicely 5.6 down to 2.9 - she still presents with transaminitis. Her CK is down trending. CT reviewed. EKG reviewed. Objective: mildly disheveled - alert. groggy. Vitals: see above Lungs: Clear. Cardiac: S1S2. Disposition/Potential discharge - Likely home in 1-2 days. Today I spent 50minutes seeing the patient, reviewing Expanse and EPIC notes/diagnostics, discussing the care plan with our care time that includes social work, PT/OT, pharmacy, RT, senior living and documenting my impressions and plan in the medical record. Alcohol 48047 >30 mins. We went over all the stigmata of alcoholism I see in this patient. I discussed the effects of chronic alcohol on the brain, liver, and heart. I recommended complete abstinence from alcohol and instructed on programs available at discharge from acute care. Exam Const: Vital Signs, click to edit/add: Vital Signs - 24 hr 09/03/24 16:00 09/03/24 16:00 09/03/24 17:00 Temperature 97.2 F L 97.2 F L 96.9 F L Pulse Rate Pulse Rate [Right Pulse Oximeter] 105 H 105 H 110 H Respiratory Rate 18 18 18 Blood Pressure [Ri ght Arm] 150/91 H 150/91 H 139/95 H Pulse Oximetry 97 97 97 Oxygen Delivery Me thod Room Air Room Air Room Air 09/03/24 18:00 09/03/24 18:00 09/03/24 18:00 Temperature 97.1 F L 97.1 F L 97.1 F L Pulse Rate Pulse Rate [Right Pulse Oximeter] 115 H 115 H 115 H Respiratory Rate 18 18 22 Blood Pressure [Ri ght Arm] 141/99 H 141/99 H 138/103 H Pulse Oximetry 99 99 98 Oxygen Delivery Me thod Room Air Room Air Room Air 09/03/24 19:00 09/03/24 19:00 09/03/24 19:26 Temperature 97.1 F L 97.2 F L Pulse Rate 113 H Pulse Rate [Right Pulse Oximeter] 121 H 122 H Respiratory Rate 22 20 Blood Pressure [Ri ght Arm] 138/103 H 156/113 H Pulse Oximetry 99 98 Oxygen Delivery Me thod Room Air Room Air 09/03/24 20:00 09/03/24 20:03 09/03/24 21:00 Temperature 97.2 F L 97.2 F L 97.2 F L Pulse Rate Pulse Rate [Right Pulse Oximeter] 122 H 124 H 98 Respiratory Rate 20 18 18 Blood Pressure [Ri ght Arm] 156/113 H 148/110 H 118/81 Pulse Oximetry 98 98 96 Oxygen Delivery Me thod Room Air Room Air Room Air 09/03/24 22:00 09/03/24 23:00 09/03/24 23:00 Temperature 96.4 F L 96.4 F L Pulse Rate 113 H Pulse Rate [Right Pulse Oximeter] 97 96 Respiratory Rate 20 20 Blood Pressure [Ri ght Arm] 128/78 125/86 Pulse Oximetry 94 96 Oxygen Delivery Me thod Room Air Room Air 09/03/24 23:00 09/04/24 00:00 09/04/24 01:00 Temperature 96.4 F L 96.4 F L Pulse Rate Pulse Rate [Right Pulse Oximeter] 97 94 90 Respiratory Rate 22 22 22 Blood Pressure [Ri ght Arm] 126/80 131/74 Pulse Oximetry 95 96 Oxygen Delivery Me thod Room Air Room Air 09/04/24 02:00 09/04/24 03:00 09/04/24 03:00 Temperature 96.4 F L 96.9 F L Pulse Rate 91 Pulse Rate [Right Pulse Oximeter] 95 92 Respiratory Rate 20 22 Blood Pressure [Ri ght Arm] 140/71 H 122/76 Pulse Oximetry 93 93 Oxygen Delivery Me thod Room Air Room Air 09/04/24 04:00 09/04/24 05:00 09/04/24 06:00 Temperature 97.4 F L 97.4 F L 97.4 F L Pulse Rate Pulse Rate [Right Pulse Oximeter] 103 H 103 H 97 Respiratory Rate 22 22 20 Blood Pressure [Ri ght Arm] 127/78 127/78 112/91 H Pulse Oximetry 94 94 95 Oxygen Delivery Me thod Room Air Room Air Room Air 09/04/24 07:00 09/04/24 07:00 09/04/24 07:00 Temperature 97.0 F L Pulse Rate 90 Pulse Rate [Right Pulse Oximeter] 92 98 Respiratory Rate 20 20 Blood Pressure [Ri ght Arm] 118/88 Pulse Oximetry 98 Oxygen Delivery Me thod Room Air 09/04/24 08:00 09/04/24 10:00 09/04/24 11:00 Temperature 97.6 F 97.6 F Pulse Rate Pulse Rate [Right Pulse Oximeter] 94 95 100 Respiratory Rate 20 18 18 Blood Pressure [Ri ght Arm] 127/84 133/83 130/86 Pulse Oximetry 100 100 100 Oxygen Delivery Ia thod Room Air Room Air Room Air 09/04/24 14:00 Temperature 97.8 F Pulse Rate Pulse Rate [Right Pulse Oximeter] 100 Respiratory Rate 20 Blood Pressure [Ri ght Arm] 146/87 H Pulse Oximetry 100 Oxygen Delivery Ia thod Room Air Labs Labs: Laboratory Results - last 24 hr 09/03/24 09/04/24 20:15 06:22 WBC 3.00 L RBC 3.23 L Hgb 9.8 L Hct 29.5 L MCV 91 MCH 30 MCHC 33 RDW Coeff of Miley 16.2 H Plt Count 41 L* Neut % (Auto) 71.5 Lymph % (Auto) 17.3 L Wagoner % (Auto) 5.3 Eos % (Auto) 5.3 Baso % (Auto) 0.3 Neut # (Auto) 2.10 Lymph # (Auto) 0.50 L Wagoner # (Auto) 0.20 Eos # (Auto) 0.20 Baso # (Auto) 0.00 Abs Immat Gran (auto) 0.00 Imm/Tot Granulo (auto) 0.3 INR 1.04 VBG pH 7.500 H 7.458 H VBG pCO2 38 L 43 VBG pO2 70.6 H < 30.1 VBG HCO3 30 H 30 H Sodium 131 L 133 L Potassium 2.7 L* 3.2 L Chloride 90 L 95 L Carbon Dioxide 29 30 Anion Gap 12 8 BUN 18 17 Creatinine 0.8 0.7 Estimated Creat Clear 106.57 121.79 Estimated GFR 97 113 Glucose 125 H 114 Lactate 0.9 Calcium 9.1 8.1 L Magnesium 1.8 1.8 Total Bilirubin 2.9 H GGT 250 H AST 215 H ALT 83 H Alkaline Phosphatase 55 Total Creatine Kinase 356 H 223 H Total Protein 7.2 Albumin 3.9
--- NOTE | 2024-09-04 23:39 | PC.NURSE ---
End of Shift: Patient pleasant and cooperative. Afebrile. Denies pain. Up with SBA. CIWA 1-3.
[2024-09-05 00:30] VITALS: BP 132/81; PULSE 83; RESP 18; TEMP 36.3; O2SAT 99
[2024-09-05 05:55] VITALS: BP 124/74; PULSE 82; RESP 18; TEMP 36.4; O2SAT 98
[2024-09-05 06:20] LABS: HCO3 VBG 26 mmol/L (21-28); PCO2 VBG 42 mmHG (40-50); PO2 VBG 39.4 mmHG (25-47)
[2024-09-05 06:24] LABS: Hematocrit 28.8 % (33.0-51.0); Hemoglobin* 9.4 gm/dL (12.0-16.0); Mean Corpuscular HGB Conc 33 gm/dL (32-36); Mean Corpuscular Hemoglobin 31 pg (26-34); Mean Corpuscular Volume 94 fL (80-100); Platelet Count* 55 K/uL (140-440); Red Blood Count 3.06 m/uL (4.00-5.20); White Blood Count* 3.14 K/uL (4.50-11.00)
[2024-09-05 06:25] LABS: Slide Review Reflex No
--- NOTE | 2024-09-05 06:26 | PC.NURSE ---
Pt alert and oriented x3. Afebrile. Pt denies pain, SOB, headache, N/V. Pt CIWA scores 1-3. Pt slept throughout most of night.?Pt reports wanting to go home today.?Pt is up SBA with IV pole, voiding and tolerating a regular diet.
[2024-09-05 06:51] LABS: INR 0.97 (0.91-1.10); Prothrombin Time 13.7 Seconds
[2024-09-05 07:23] VITALS: BP 130/94; PULSE 92; RESP 16; TEMP 36.1; O2SAT 98
[2024-09-05] MEDS: FOLIC ACID 1 MG TABLET PO (07:24)
[2024-09-05] MEDS: SODIUM CHLORIDE 0.9 % (FLUSH) 10 ML SYRINGE 5 ML IVF (07:24)
[2024-09-05] MEDS: THIAMINE 100 MG TABLET 250 MG PO (07:24)
[2024-09-05] MEDS: OMEPRAZOLE 20 MG CAPSULE DR PO (07:24)
[2024-09-05 07:46] LABS: Albumin* 3.4 g/dL (3.3-5.0); Chloride* 105 mmol/L (96-114); Sodium* 136 mmol/L (135-149)
[2024-09-05 07:47] LABS: Potassium* 3.4 mmol/L (3.6-5.1)
[2024-09-05 07:49] LABS: Alanine Aminotransferase* 68 U/L (4-35); Alkaline Phosphatase* 44 U/L (40-150); Anion Gap 7 mEq/L (7-15); Aspartate Amino Transferase* 129 U/L (12-35); Bilirubin Total* 1.4 mg/dL (0.1-1.5); Blood Urea Nitrogen* 16 mg/dL (5-24); Carbon Dioxide* 24 mmol/L (20-32); Creatinine* 0.6 mg/dL (0.5-1.5); Est. Creatinine Clearance* 142.09; Estimated Glomerular Filt Rate 118 ml/min; Total Protein* 6.4 g/dL (6.0-8.3)
[2024-09-05 07:50] LABS: Calcium* 7.9 mg/dL (8.4-10.6); Glucose* 120 mg/dL (60-115)
--- NOTE | 2024-09-05 09:50 | PC.NURSE ---
Discharge. pt has been very pleasant. Pt alert and oriented x4. she denies pain. Pt CIWA scores 1-3. Pt wanting to go home today.?Pt is up ab marcelo. , she is eating, drinking and voiding with no problems. went over discharge packet with pt. went over medications, appointments, education, and instructions. she went over and signed personal belonging sheet. sl was d/c intact
--- NOTE | 2024-09-05 15:24 | PM.DS1 ---
DS: Providers Provider Date Seen: 09/05/24 Date of admission: 09/03/24 08:30 Primary care physician: Not a Local Provider Admitting Clinician: Marium Werner MD Consults: 09/03/24 09:12 Consult to Test Puller [CONS] Routine Comment: Reason for Consult:: Substance Abuse Screening Attending Physician on discharge: Deborah Slaughter MD [facility] Date of Discharge: 09/05/24 DS: Diagnosis Discharge Diagnosis (1) Alcohol withdrawal hallucinosis: Status: Acute Problem details: -resolved after 72 hours -withdrawal symptoms much improved by am of 09/05 -requesting discharge -recommended inpatient alcohol dependence treatment, partial day and a minimum addiction med eval/AA sponsor. pt seemed noncommital about options. -sent naltrexone 25 daily; referral to Al Gray (PRODUCTION MACHINIST at [facility]) (2) Alcohol use disorder: Status: Acute Problem details: years of whisky shots and beer, max sobriety in years has been 2 weeks in Mar 2024. Has never had seizure before August 2024 but has noted withdrawals in the past. (3) Liver disease: Status: Acute Problem details: - findings of by hyperbilirubinemia, elevated AST/ALT, hyponatremia, thrombocytopenia - chronicity unknown, presumably 2/2 ETOH use - CT c/w with fatty disease. MELD 19 on admission in August 2024 (4) Thrombocytopenia: Status: Acute Problem details: - imaging to evaluate liver and spleen, follow. CT reviewed. - unknown baseline/chronicity - multiple bruises, but no acute bleeding noted (5) Anxiety: Status: Acute Problem details: - long history of this, per patient - had been given Rx for Lexapro in the past from , had never started this. - amenable to starting 09/04 (6) Fall: Status: Acute Problem details: - fall while intoxicated around 08/31/24, down 13 stairs, no LOC - multiple bruises over chest, back, abdomen, extremities - negative head CT, reassuring A/P CT on 09/03 (7) Seizure: Status: Acute Problem details: - presumably 2/2 ETOH withdrawal (last drink 4/10 pm), no high risk medications, no history of previous seizure - treat ETOH withdrawal aggressively, reviewed with Dr. Root of Neurology by phone (no further inpatient workup or medication, outpatient Neuro f/u) (8) Hyperbilirubinemia: Status: Acute Problem details: - likely secondary to alcohol use disorder; resolved (9) Obesity (BMI 30.0-34.9): Status: Acute DS: Summary Hospital Course Hospital Course: FINAL DIAGNOSIS/FOLLOW UP ISSUES: 1. Alcohol withdrawal with seizure hallucinations. Resolved over 72 hours. Further seizures. Managed with IV phenobarbital, Ativan. Recommended inpatient alcohol dependence treatment, partial day treatment, plastic surgery specialist and evaluation with AA support. Patient noncommittal about options. arranged for 3 day follow-up with Al Gray ([facility]; mental health provider) and started naltrexone at 25 mg daily. 2. Liver disease with stigmata of chronic alcoholism. Thrombocytopenia, hyperbilirubinemia noted in this hospital stay. Transaminitis. INR, kidney function normal. Meld score 19 on admission. 3. Chronic anxiety, started Lexapro at 10 mg p.o. daily BRIEF HOSPITAL COURSE: Patient was admitted for 3 days. Synopsis of acute inpatient issues are outlined above. Chronic medical conditions with notable findings outlined above. Patient presented after a presumed alcohol withdrawal seizure on the morning of 09/03/2024. Initially the patient was severe withdrawal with tachycardia, hypertension, diaphoresis, hallucinations. She was managed in our CCU with IV phenobarbital, Ativan. She was given IV thiamin, oral multivitamin and folic acid. She was given a PPI. We replaced her electrolytes. We monitored her transaminitis, hyperbilirubinemia, thrombocytopenia. No transfusions necessary. By 09/04 she was generally improved. By the morning of 09/05 she was anxious for discharge. We discussed alcohol dependence, liver injury, meld score, prognosis. Patient was agreeable but lacked insight. She remained noncommittal about her path forward. I did recommend inpatient alcohol dependence treatment, and all options in between including partial day programs, following with Neurology in addiction medicine and mental health assessments. Ultimately she discharged on Lexapro, naltrexone and a 3 day follow-up with a local mental health addiction clinic. DISCHARGE MEDICATIONS: See Reconciled list - SIGNIFICANT CHANGES: Lexapro, naltrexone, folic acid Specific instructions to the patient and follow-up are outlined below. REVIEW OF SYSTEMS No new chest pain or dyspnea Pain controlled No voiding difficulties Tolerating diet challenge PHYSICAL EXAM: CONSTITUTIONAL: Conversive, good historian. A/O. Knows setting and context. GENERAL: Well-developed and above ideal body weight, in no respiratory distress. VITAL SIGNS: see record. HEENT: Sclerae are anicteric. No petechiae. CARDIAC: rhythm is regular. There is no S3 or rub. No harsh murmurs. Extremities show trace edema with symmetrical pulses. PULM: good air entry with no wheeze. NEURO: Speech is fluent. A brief neurologic exam is negative. SKIN: No rashes, petechiae, concerning changes PSYCHIATRIC: Euthymic. DISPOSITION: home with Time spent on discharge 37 minutes. Time Spent with Patient Time attestation: Total time spent providing and/or coordinating discharge services: Exam Const: Vital Signs, click to edit/add: Vital Signs - 24 hr 09/04/24 18:00 09/04/24 20:00 09/05/24 00:30 Temperature 98.4 F 97.9 F 97.3 F L Pulse Rate [Right Pulse Oximeter] 94 96 83 Respiratory Rate 18 18 18 Blood Pressure [Ri ght Arm] 124/74 139/83 132/81 Pulse Oximetry 100 97 99 Oxygen Delivery Me thod Room Air Room Air Room Air 09/05/24 05:55 09/05/24 07:23 Temperature 97.6 F 97.0 F L Pulse Rate [Right Pulse Oximeter] 82 92 Respiratory Rate 18 16 Blood Pressure [Ri ght Arm] 124/74 130/94 H Pulse Oximetry 98 98 Oxygen Delivery Me thod Room Air Room Air DS: Data Data Completed and Pending Labs on day of discharge: Labs from last 24 hours 09/05/24 09/05/24 07:21 06:04 WBC 3.14 L RBC 3.06 L Hgb 9.4 L Hct 28.8 L MCV 94 MCH 31 MCHC 33 Plt Count 55 L INR 0.97 VBG pH 7.400 VBG pCO2 42 VBG pO2 39.4 VBG HCO3 26 Sodium 136 Potassium 3.4 L Chloride 105 Carbon Dioxide 24 Anion Gap 7 BUN 16 Creatinine 0.6 Estimated Creat Clear 142.09 Estimated GFR 118 Glucose 120 H Calcium 7.9 L Total Bilirubin 1.4 AST 129 H ALT 68 H Alkaline Phosphatase 44 Total Protein 6.4 Albumin 3.4 Lab Acknowledgement Test Added Discharge Plan Discharge Disposition: Home w/ Parent or Adult Date of Admission: 09/03/24 08:30 Attending Provider on Discharge: Deborah Slaughter Primary Care Provider: Provider,Not a Local Condition: Guarded Anticipated Discharge Date/Time: 09/05/24 08:55 Discharge Medications: New folic acid 1 mg Tablet 1 mg PO DAILY Qty: 30 0RF escitalopram oxalate [Lexapro] 10 mg tablet 10 mg PO DAILY Qty: 30 0RF naltrexone 50 mg tablet 25 mg PO DAILY Qty: 15 0RF No Action No Known Home Medications Discharge Orders: Discharge Order (Routine); Ordered 09/05/24 Ordered By: Deborah Slaughter Patient Education: Folic Acid (By mouth), Naltrexone (By mouth), Escitalopram (By mouth) (Lexapro), Alcohol Withdrawal (DC) Additional Instructions: New Meds: Naltrexone (decrease alcohol cravings), Lexapro (decrease anxiety), Folic Acid (supplement for liver) There is no safe amount of alcohol you can consume. Complete abstinence is our recommendation; this includes beer. Follow-up with Dr. Al Gray ([facility]). He will call you, however, his best contact number is [phone] - You should see him this week! Follow up with new physician at [facility] - see appointment details below. Remember what what we said ... You are STRONG but that doesn't mean you don't need help and structure to stay healthy. You can do it. Activity Level: Activity as Tolerated Discharge Diet: Regular Follow Up Appointments: [facility] [Provider Group] ([facility] - next available provider. [facility] f/u - [facility] care.) João Pizano MD [Referring] - 09/08/24 11:00 am ([facility] for follow-up. Please bring insurance card and photo- ID, to appointment.) Christian Gray, [facility], MEDICAL IMAGING DIRECTOR [Referring] - (Al Gray will reach out to patient) Forms: [employer] Info Instructions
== END 2024-09-05 09:50 | disposition home or self-care (01) | DRG 897 ==
LOC: ED 07:04 → MEDSURG 08:37
PROVIDERS: Family Medicine; Admitting Provider Family Medicine; Emergency Provider Family Medicine; Visit Provider Family Medicine
DX: F10.231 Alcohol dependence with withdrawal delirium (principal); E87.1 Hypo-osmolality and hyponatremia; F10.251 Alcohol dependence with alcohol-induced psychotic disorder with hallucinations; K70.10 Alcoholic hepatitis without ascites; F10.288 Alcohol dependence with other alcohol-induced disorder; E87.6 Hypokalemia; D69.6 Thrombocytopenia, unspecified; S20.219A Contusion of unspecified front wall of thorax, initial encounter; S30.0XXA Contusion of lower back and pelvis, initial encounter; S20.229A Contusion of unspecified back wall of thorax, initial encounter; S30.1XXA Contusion of abdominal wall, initial encounter; S40.022A Contusion of left upper arm, initial encounter; S40.021A Contusion of right upper arm, initial encounter; S80.12XA Contusion of left lower leg, initial encounter; S80.11XA Contusion of right lower leg, initial encounter; W10.9XXA Fall (on) (from) unspecified stairs and steps, initial encounter; Z91.81 History of falling; F41.9 Anxiety disorder, unspecified; E66.9 Obesity, unspecified; Z68.33 Body mass index [BMI] 33.0-33.9, adult
CPT/HCPCS: 36415; 70450; 74177; 80048; 80053; 80069; 80076; 80306; 81025; 82077; 82550; 82803; 82977; 83605; 83735; 84484; 85025; 85027; 85610; 93005; 99284; 99285; A9270; J2060; J2560; J3411; J3475; J3480; J7030; J7050; Q9967